=== PATIENT | female | born 1980 | race Caucasian/White ===

== ENCOUNTER 2016-07-06 17:00 | Emergency (ER) | payer SELFPAY ==
[~2016-07-06] VITALS: Ht 149.9 cm; Wt 40.6 kg
[2016-07-06 17:31] VITALS: BP 112/76
--- NOTE | 2016-07-06 19:18 | NUR ---
PATIENT CALLED FROM [facility] NO ANSWER PATIENT IS LWBS.
== END 2016-07-06 18:30 | disposition left against medical advice (07) ==
LOC: MED 17:00
DX: O21.0 Mild hyperemesis gravidarum (principal); Z3A.08 8 weeks gestation of pregnancy; Z53.21 Procedure and treatment not carried out due to patient leaving prior to being seen by health care provider